=== PATIENT | male | born 2000 | race Caucasian/White ===

== ENCOUNTER 2021-11-22 18:27 | Observation (INO) | payer BC ==
[~2021-11-22] VITALS: Ht 177.8 cm; Wt 108.9 kg
[2021-11-22 20:26] LABS: HEMOGLOBIN 14.9 gm/dl (14.0-17.5); RED BLOOD COUNT 4.93 M/UL (4.20-5.50); WHITE BLOOD COUNT 12.3 K/UL (4.5-11.0)
[2021-11-22 20:55] LABS: BUN/CREATININE RATIO 14 (0-10)
== END 2021-11-23 18:59 | disposition home or self-care (01) ==
LOC: ER1 18:27 → MED SURG 4 20:56 → CDU 20:56 → MED SURG 4 22:52
PROVIDERS: Physician Assistant; ADMIT Surgery
PROC: 0DTJ4ZZ Resection of Appendix, Percutaneous Endoscopic Approach (ICD-10-PCS; principal; 2021-11-23 11:44)
DX: K35.80 Unspecified acute appendicitis (principal); Z20.822 Contact with and (suspected) exposure to COVID-19; I45.6 Pre-excitation syndrome; E66.01 Morbid (severe) obesity due to excess calories; Z68.34 Body mass index [BMI] 34.0-34.9, adult; Z91.013 Allergy to seafood
CPT/HCPCS: 80053; 81001; 82962; 85025; 85652; 86140; 87081; 87880; 96374; 99285; G0378; J0690; J1100; J1170; J1885; J2001; J2250; J2405; J2704; J2710; J3010; J7030; J7120; Q9967; U0002